=== PATIENT | female | born 1995 | race Caucasian/White ===

== ENCOUNTER 2016-09-07 11:17 | Emergency (ER) | payer BC ==
[~2016-09-07] VITALS: Ht 170.2 cm; Wt 76.0 kg
[2016-09-07 11:24] VITALS: TEMP 36.9; Ht 170.2 cm; Wt 76.0 kg
[2016-09-07] MEDS ORDERED: BCPILLS PO (11:35)
--- NOTE | 2016-09-07 11:56 | EMERGENCY ROOM VISIT NOTE ---
History First contact with patient: 11:45 Chief Complaint: SHORTNESS OF BREATH Stated Complaint: SOB Nursing Triage Summary: SOB, hurts to take a deep breath. Ddimer elevated. History of Present Illness The patient is a 21 year old female who presents to the Emergency Room via private vehicle coming by friend with complaints of "shortness of breath, hurts to take a deep breath, d-dimer elevated". The patient states that for the past 3 or 4 weeks she has had shortness of breath and feels as though she cannot take a deep breath and will experience pain in the right inferior portion of her chest that is sometimes substernal as well. It has not gotten any worse. She notes there will be sharp pains at times. She does take control. She denies any fevers, chills, cough, mucus production, history of blood clots, smoking, recent bone fracture, any leg swelling or pain. She denies chance of . There is no active chest pain at this time. Review of Systems A complete 10-point Review of Systems was discussed with the patient, with pertinent positives and negatives listed in the History of Present Illness. All remaining Review of Systems questions can be considered negative unless otherwise specified. Past Medical/Surgical History Asthma Family History Unremarkable Social History Smoking Status: Never Smoker Social History: Patient lives with roommate. She denies tobacco use but admits to alcohol use. Current/Historical Medications Scheduled Control Pills ( Control Pills), 1 TAB PO DAILY Allergies Coded Allergies: NUTS (Verified Adverse Reaction, Severe, VOMITING, 09/07/16) Physical Exam Vital Signs Date Time Temp Pulse Resp B/P Pulse Ox O2 Delivery O2 Flow Rate FiO2 09/07/16 14:06 61 20 127/85 98 09/07/16 13:04 61 17 118/72 96 Room Air 09/07/16 12:05 68 09/07/16 12:04 Room Air 09/07/16 11:46 Room Air 09/07/16 11:24 36.9 67 18 131/74 Room Air Physical Exam VITAL SIGNS - Vital signs and nursing notes were reviewed. She is afebrile, normotensive, non-tachycardic and is saturating well on room air 100% upon my evaluation. GENERAL -21-year-old female appearing her stated age who is in no acute distress. Patient is nontoxic-appearing. Communicates well with provider and answers questions appropriately. SKIN - Without rashes. HEAD - NC/AT. EYES - PERRL with EOMI bilaterally. Sclera anicteric. Palpebral conjunctiva pink and moist with no injection noted. EARS - No deformities of external structures noted on gross examination bilaterally. No pain elicited with palpation of the tragus bilaterally. External auditory canals without discharge or otorrhea. Tympanic membranes pearly martinez without retraction or bulging. No fluid or purulent material visualized behind the TM. Handle of malleus, umbo, cone of light, pars tensa/ flaccid all easily visualized. NOSE - Midline and without cyanosis. No epistaxis or purulent drainage noted. Septum midline without deviation or septal hematoma noted. MOUTH/OROPHARYNX - Without perioral cyanosis. Buccal mucosa pink and moist and without leukoplakia. Tongue midline with equal elevation of palate bilaterally. No tonsillar hypertrophy, erythema, or exudates noted. Good dentition noted. NECK - Neck with FROM. Supple to palpation. LUNGS - Chest wall symmetric without accessory muscle use, intercostals retractions, or central cyanosis. Normal vesicular breath sounds CTA B/L. No wheezes, rales, or rhonchi appreciated. CARDIAC - RRR with S1/S2. No murmur, rubs, or gallops appreciated. ABDOMEN - Abdominal contour without pulsations or visible masses. BS normoactive all four quadrants. No tenderness, palpable masses, hepatosplenomegaly, or ascites noted. EXTREMITIES - No clubbing or peripheral cyanosis. No pretibial edema present. +5 /5 strength noted in UE/LE bilaterally. No neurologic deficits. NEUROLOGIC - Cranial nerves II through XII grossly intact. Sensory intact to light touch throughout. PSYCH - A&Ox3 and cooperates fully with examiner. Pt is very pleasant and interacts well with examiner. Medical Decision & Procedures ER Provider Diagnostic Interpretation: CHEST CTA for PULMONARY ARTERIES CT DOSE: 390.62 mGycm HISTORY: Chest pain dyspnea TECHNIQUE: Multiaxial CT images of the chest were performed following the intravenous administration of contrast to evaluate the pulmonary arteries. Maximal intensity projection images were also obtained. COMPARISON STUDY: None. FINDINGS: There is a normal caliber thoracic aorta with no evidence for dissection. There is no evidence for pulmonary embolus. No pleural effusions. No pneumothorax. The liver and spleen are unremarkable. No mediastinal or hilar lymphadenopathy. The central airways are patent. The lungs are clear. IMPRESSION: No evidence for pulmonary embolus. Lungs are clear. Electronically signed by: Gilbert Narayanan M.D. 09/07/2016 1:10 PM Dictated Date/Time: 09/07/2016 1:07 PM Laboratory Results 09/07/16 11:42 Red Blood Count 4.28, Mean Corpuscular Volume 90.9, Mean Corpuscular Hemoglobin 30.1, Mean Corpuscular Hemoglobin Concent 33.2, Mean Platelet Volume 10.3, Neutrophils (%) (Auto) 62.8, Lymphocytes (%) (Auto) 27.5, Monocytes (%) (Auto) 9.0, Eosinophils (%) (Auto) 0.3, Basophils (%) (Auto) 0.1, Neutrophils # (Auto) 5.74, Lymphocytes # (Auto) 2.52, Monocytes # (Auto) 0.82, Eosinophils # (Auto) 0.03, Basophils # (Auto) 0.01 09/07/16 11:42 Test 09/07/16 11:42 09/07/16 11:53 09/07/16 11:54 09/07/16 11:59 White Blood Count 9.15 K/uL (4.8-10.8) Red Blood Count 4.28 M/uL (4.2-5.4) Hemoglobin 12.9 g/dL (12.0-16.0) Hematocrit 38.9 % (37-47) Mean Corpuscular Volume 90.9 fL (80-100) Mean Corpuscular Hemoglobin 30.1 pg (25-34) Mean Corpuscular Hemoglobin Concent 33.2 g/dl (32-36) Platelet Count 195 K/uL (130-400) Mean Platelet Volume 10.3 fL (7.4-10.4) Neutrophils (%) (Auto) 62.8 % Lymphocytes (%) (Auto) 27.5 % Monocytes (%) (Auto) 9.0 % Eosinophils (%) (Auto) 0.3 % Basophils (%) (Auto) 0.1 % Neutrophils # (Auto) 5.74 K/uL (1.4-6.5) Lymphocytes # (Auto) 2.52 K/uL (1.2-3.4) Monocytes # (Auto) 0.82 K/uL (0.11-0.59) Eosinophils # (Auto) 0.03 K/uL (0-0.5) Basophils # (Auto) 0.01 K/uL (0-0.2) RDW Standard Deviation 45.3 fL (36.4-46.3) RDW Coefficient of Variation 13.8 % (11.5-14.5) Immature Granulocyte % (Auto) 0.3 % Immature Granulocyte # (Auto) 0.03 K/uL (0.00-0.02) Prothrombin Time 11.0 SECONDS (9.0-12.0) Prothromb Time International Ratio 1.0 (0.9-1.1) Activated Partial Thromboplast Time 24.1 SECONDS (21.0-31.0) Partial Thromboplastin Ratio 0.9 Anion Gap 10.0 mmol/L (3-11) Est Creatinine Clear Calc Drug Dose 100.5 ml/min Estimated GFR () 99.9 Estimated GFR (Non- 86.2 BUN/Creatinine Ratio 18.7 (10-20) Calcium Level 9.1 mg/dl (8.5-10.1) Total Bilirubin 0.3 mg/dl (0.2-1) Aspartate Amino Transf (AST/SGOT) 22 U/L (15-37) Alanine Aminotransferase (ALT/SGPT) 48 U/L (12-78) Alkaline Phosphatase 41 U/L (45-117) Total Creatine Kinase 39 U/L (26-192) Creatine Kinase MB < 0.5 ng/ml (0.5-3.6) Total Protein 8.3 gm/dl (6.4-8.2) Albumin 4.1 gm/dl (3.4-5.0) Globulin 4.2 gm/dl (2.5-4.0) Albumin/Globulin Ratio 1.0 (0.9-2) Bedside Urine Test NEG (NEG) Creatine Kinase MB Ratio (0-3.0) Bedside Troponin I 0.000 ng/ml (0-0.045) Medical Decision Patient was seen and evaluated as above. After obtaining a thorough history and physical examination IV access was obtained and a CBC, CMP, coagulation panel and urine test were obtained. Because of the elevated d-dimer that was subjectively obtained [facility] today, the patient warrants a CT scan to evaluate for pulmonary embolism. CBC reveals no leukocytosis or anemia, coagulation study was unremarkable, CMP reveals hypokalemia at 3.1, decreased alkaline phosphatase at 41. Urine test was negative. CT scan of the chest was negative for pulmonary embolism. No external findings. Patient clinical looks well and is saturating well on room air. Her EKG reveals normal sinus rhythm rate of 60 bpm there is questionable RSR or QR pattern in V1 with potential right ventricle or conduction delay but I do not feel this is of any emergent importance. No previous for comparison. CT was negative. She currently looks well therefore I do not believe that she has any and her workup was unremarkable and her troponin was negative. She was instructed upon follow- up. She was educated upon worrisome symptoms in which to return. She had questions answered prior to discharge, and was discharged home in good condition. In evaluation treatment this patient the following differential diagnoses were entertained: Myocardial infarction, pulmonary embolism, pneumonia, pneumothorax , bronchitis, among others. There is no evidence of these upon clinical exam or workup. Impression Primary Impression: Dyspnea Additional Impression: Hypokalemia Departure Information Dispostion Home / Self-Care Condition GOOD Referrals No Doctor, Assigned (PCP) Patient Instructions Hypokalemia Ar, My [facility] Additional Instructions You were seen in the emergency department for shortness of breath following an elevated d-dimer. CT scan chest was negative for blood clot. Your potassium was 3.1. Please refer to the attached handout for foods that are high in potassium. Please have this repeated with your family doctor. Please follow-up with [facility] by calling later today to schedule follow-up regarding your shortness of breath. Please return to the emergency department for any new/concerning symptoms. Problem Qualifiers Primary Impression: Dyspnea Dyspnea type: shortness of breath Qualified Codes: R06.02 - Shortness of breath
[2016-09-07] MEDS ORDERED: OPTIRAY 320 IV PRN (12:00)
[2016-09-07 12:14] LABS: BASO % 0.1 %; BASO ABS # 0.01 K/uL (0-0.2); COMPLETE YES; EOS % 0.3 %; HEMATOCRIT 38.9 % (37-47); IG% 0.3 %; LYMPH % 27.5 %; LYMPH ABS # 2.52 K/uL (1.2-3.4); MEAN CELL VOLUME 90.9 fL (80-100); MEAN CORPUSCULAR HEMOGLOBIN 30.1 pg (25-34); MEAN CORPUSCULAR HGB CONC 33.2 g/dl (32-36); MEAN PLATELET VOLUME 10.3 fL (7.4-10.4); NEUT % 62.8 %; PLATELET COUNT 195 K/uL (130-400); RED BLOOD COUNT 4.28 M/uL (4.2-5.4); WHITE BLOOD COUNT 9.15 K/uL (4.8-10.8)
[2016-09-07 12:22] LABS: ALT/SGPT 48 U/L (12-78); BLOOD UREA NITROGEN 18 mg/dl (7-18); BUN/CREATININE RATIO 18.7 (10-20); CALCIUM 9.1 mg/dl (8.5-10.1); CARBON DIOXIDE 26 mmol/L (21-32); CHLORIDE 106 mmol/L (98-107); CREATININE 0.95 mg/dl (0.60-1.20); GLUCOSE 78 mg/dl (70-99); POTASSIUM 3.1 mmol/L (3.5-5.1); SODIUM 142 mmol/L (136-145)
[2016-09-07 12:26] LABS: ALKALINE PHOSPHATASE 41 U/L (45-117); AST/SGOT 22 U/L (15-37)
[2016-09-07 12:28] LABS: PARTIAL THROMBOPLASTIN RATIO 0.9
--- NOTE | 2016-09-07 13:12 | DIAGNOSTIC IMAGING REPORT ---
CHEST CTA for PULMONARY ARTERIES CT DOSE: 390.62 mGycm HISTORY: Chest pain dyspnea TECHNIQUE: Multiaxial CT images of the chest were performed following the intravenous administration of contrast to evaluate the pulmonary arteries. Maximal intensity projection images were also obtained. COMPARISON STUDY: None. FINDINGS: There is a normal caliber thoracic aorta with no evidence for dissection. There is no evidence for pulmonary embolus. No pleural effusions. No pneumothorax. The liver and spleen are unremarkable. No mediastinal or hilar lymphadenopathy. The central airways are patent. The lungs are clear. IMPRESSION: No evidence for pulmonary embolus. Lungs are clear. Electronically signed by: Gilbert Narayanan M.D. 09/07/2016 1:10 PM Dictated Date/Time: 09/07/2016 1:07 PM
[2016-09-07 14:06] VITALS: BP 127/85; PULSE 61; O2SAT 98
== END 2016-09-07 14:07 | disposition home or self-care (01) ==
LOC: C.EDB 11:18 → C.EDA 14:07
DX: R06.02 Shortness of breath (principal); E87.6 Hypokalemia; R79.1 Abnormal coagulation profile; R07.9 Chest pain, unspecified; Z79.3 Long term (current) use of hormonal contraceptives; J45.909 Unspecified asthma, uncomplicated